=== PATIENT | male | born 1950 | race Caucasian/White ===

== ENCOUNTER 2018-12-02 16:09 | Emergency (ER) | payer MEDICARE, OTHER ==
[~2018-12-02] VITALS: Ht 162.6 cm; Wt 72.6 kg
[~2018-12-02 16:09] MED LIST: AMLO10TA7 PO; ASPI-605 PO; BENA20TA9 PO; FINA5TAB11 PO
[2018-12-02] MEDS ORDERED: TAMS-3 PO (16:20)
[2018-12-02] MEDS ORDERED: DIPH50CA37 PO (16:20)
[2018-12-02] MEDS ORDERED: LOSA100T31 PO (16:20)
[2018-12-02] MEDS ORDERED: METO25TA3 PO (16:20)
[2018-12-02] MEDS ORDERED: CLON0.1T PO (16:20)
[2018-12-02] MEDS ORDERED: AMLO10TA7 PO (16:20)
[2018-12-02] MEDS ORDERED: ENALAPRILAT DIHYDRATE 1.25 MG/1 ML VIAL IV ONE ×2 (16:30→16:32)
[2018-12-02 17:12] LABS: BASOPHILS % (AUTO) 0.4 % (0.0-2.0); EOSINOPHILS # (AUTO) 0.1 K/uL (0.0-0.7); EOSINOPHILS % (AUTO) 1.4 % (0.0-7.0); HEMATOCRIT 38.5 % (36.7-47.1); LYMPHOCYTES # (AUTO) 1.4 K/uL (20.0-40.0); LYMPHOCYTES % (AUTO) 28.3 % (20.5-51.5); MEAN CORPUSCULAR HEMOGLOBIN 30.9 uug (23.8-33.4); MEAN CORPUSCULAR HGB CONC 34 g/dL (32.5-36.3); MEAN CORPUSCULAR VOLUME 91.3 fL (73.0-96.2); MONOCYTES # (AUTO) 0.4 K/uL (2.0-10.0); NEUTROPHILS # (AUTO) 3.1 K/uL (1.8-8.9); NEUTROPHILS % (AUTO) 61.9 % (38.5-71.5); PLATELET COUNT (AUTO) 176 K/uL (152-348); RED BLOOD CELL COUNT(AUTO) 4.21 MIL/uL (4.06-5.63)
[2018-12-02 17:16] LABS: CREATININE 0.9 mg/dL (0.6-1.3); POTASSIUM 3.5 mmol/L (3.5-5.1)
--- NOTE | 2018-12-02 17:40 | NUR ---
Patient discharged to home in stable conditon. Written and verbal after care instructions given. Patient verbalizes understanding of instructions. Ambulated from ER with stable gait. All belongings with patient . Peripheral IV removed prior to d/c
[2018-12-02 17:42] VITALS: BP 161/97
== END 2018-12-02 17:42 | disposition home or self-care (01) ==
LOC: ER 16:12
DX: I10 Essential (primary) hypertension (principal); F17.210 Nicotine dependence, cigarettes, uncomplicated; Z79.82 Long term (current) use of aspirin; Z79.899 Other long term (current) drug therapy
CPT/HCPCS: 36415; 71045; 80048; 84484; 85025; 93005; 96374; 99284; 99406; J3490; 70030-TC; A4663

== ENCOUNTER 2019-01-06 11:23 | Emergency (ER) | payer MEDICARE, OTHER ==
[~2019-01-06] VITALS: Ht 170.2 cm; Wt 68.0 kg
[~2019-01-06 11:23] MED LIST changes: -ASPI-605 PO; -BENA20TA9 PO; +CLON0.1T PO; +DIPH50CA37 PO; -FINA5TAB11 PO; +LOSA100T31 PO; +METO25TA3 PO; +TAMS-3 PO
[2019-01-06] MEDS ORDERED: CLONIDINE HCL 0.2 MG TABLET PO ONE (11:45)
[2019-01-06] MEDS ORDERED: CLONIDINE HCL 0.2 MG TABLET ONE (11:49)
[2019-01-06 12:51] VITALS: BP 143/88
--- NOTE | 2019-01-06 12:56 | NUR ---
Patient discharged to home in stable conditon. Written and verbal after care instructions given. Patient verbalizes understanding of instructions.PT WALKS IN STEADY GAIT. PT ACCOMPANIED BY FAMILY MEMBERS.
== END 2019-01-06 12:57 | disposition home or self-care (01) ==
LOC: ER 11:23
DX: S22.42XA Multiple fractures of ribs, left side, initial encounter for closed fracture (principal); I10 Essential (primary) hypertension; F17.210 Nicotine dependence, cigarettes, uncomplicated; Z79.899 Other long term (current) drug therapy; W19.XXXA Unspecified fall, initial encounter; Y93.89 Activity, other specified; Y92.89 Other specified places as the place of occurrence of the external cause; Y99.8 Other external cause status
CPT/HCPCS: 71101; A4663

== ENCOUNTER 2021-01-17 06:32 | Outpatient (CLI) | payer MEDICARE, OTHER ==
[~2021-01-17 06:32] MED LIST changes: +AMLO10TA59 PO; -AMLO10TA7 PO
== END 2021-01-17 23:59 | disposition home or self-care (01) ==
LOC: LAB 06:32
PROVIDERS: ATTEND Internal Medicine
DX: Z01.812 Encounter for preprocedural laboratory examination (principal); Z20.822 Contact with and (suspected) exposure to COVID-19

== ENCOUNTER 2021-01-20 07:29 | Day surgery (SDC) | payer MEDICARE, OTHER ==
[2021-01-20] MEDS ORDERED: LIDOCAINE-MPF 2% 5 ML VIAL IJ ONE (07:30)
[2021-01-20] MEDS ORDERED: NEOSTIGMINE METHYLSULFATE 10 MG/10 ML VIAL IM ONE (07:30)
[2021-01-20] MEDS ORDERED: METOCLOPRAMIDE HCL 10 MG/2 ML VIAL IV ONE (07:30)
[2021-01-20] MEDS ORDERED: IV NORMAL SALINE 1000 ML BAG IV ONE (07:30)
[2021-01-20] MEDS ORDERED: PROPOFOL 200 MG/20 ML BOTTLE IV ONE (07:30)
[2021-01-20] MEDS ORDERED: SEVOFLURANE 250 ML BOTTLE IH ONE (07:30)
[2021-01-20] MEDS ORDERED: ONDANSETRON 4 MG/2 ML VIAL IV ONE (07:30)
[2021-01-20] MEDS ORDERED: GLYCOPYRROLATE 0.2 MG/ML VIAL IJ ONE (07:30)
[2021-01-20] MEDS ORDERED: CEFAZOLIN 1 G VIAL IM ONE (07:30)
[2021-01-20] MEDS ORDERED: CEFAZOLIN 2 G in IV DEXTROSE 5% 100 ML IV ONE (07:45)
[2021-01-20 07:56] LABS: *BILIRUBIN,URIN 3+ (NEGATIVE); *BLOOD, URINE 1+ (NEGATIVE); *CLARITY,URINE CLEAR (CLEAR); *COLOR,URINE YELLOW (YELLOW); *KETONES,URINE 2+ (NEGATIVE); LEUKOCYTE ESTERASE ,URINE NEGATIVE (NEGATIVE); NITRITE, URINE NEGATIVE (NEGATIVE); PH,URINE 5.5 (5.0-8.0); UGLUCOSE NEGATIVE (NEGATIVE)
[2021-01-20 08:12] LABS: HEMATOCRIT 39.8 % (36.7-47.1); MEAN CORPUSCULAR HEMOGLOBIN 35.1 uug (23.8-33.4); MEAN CORPUSCULAR VOLUME 104.1 fL (73.0-96.2); PLATELET COUNT (AUTO) 173 K/uL (152-348)
[2021-01-20 08:27] LABS: CREATININE 1.2 mg/dL (0.6-1.3)
[2021-01-20 08:32] LABS: BILIRUBIN,TOTAL 0.8 mg/dL (0.2-1.0); TOTAL PROTEIN, SERUM 6.7 g/dL (6.4-8.2)
[2021-01-20] MEDS ORDERED: BUPIVACAINE PF 0.5% 30 ML VIAL ONE (08:36)
[2021-01-20] MEDS ORDERED: LIDOCAINE 1%-EPI 1:100,000 20 ML VIAL ONE (08:36)
[2021-01-20] MEDS ORDERED: BACITRACIN ZINC OINT 15 GM TUBE ONE (08:37)
[2021-01-20] MEDS ORDERED: MIDAZOLAM HCL 2 MG/2 ML VIAL ONE (08:40)
[2021-01-20] MEDS ORDERED: HYDROMORPHONE 2 MG/1 ML DISP.SYRIN ONE (08:40)
[2021-01-20] MEDS ORDERED: FENTANYL CITRATE 250 MCG/5 ML AMPUL ONE (08:40)
[2021-01-20] MEDS ORDERED: ROCURONIUM BROMIDE 50 MG/5 ML VIAL ONE (08:41)
[2021-01-20] MEDS ORDERED: SEVOFLURANE 250 ML BOTTLE ONE (09:55)
[2021-01-20 10:55] LABS: BACTERIA,URINE NONE SEEN /HPF (NONE SEEN); MUCUS,URINE FEW /LPF (0-FEW); SQUAMOUS EPITHELIAL CELL,UR NONE SEEN /HPF (NONE SEEN); WBC,URINE 0-3 /HPF (0-3)
[2021-01-20] MEDS ORDERED: ACETAMINOPHEN 325 MG TABLET ONE (11:57)
[2021-01-20] MEDS ORDERED: GABAPENTIN 300 MG CAPSULE PO ONE (12:00)
[2021-01-20] MEDS ORDERED: ACETAMINOPHEN 325 MG TABLET PO ONE (12:00)
[2021-01-20] MEDS ORDERED: IBUPROFEN 800 MG TABLET PO ONE (12:00)
== END 2021-01-20 13:00 | disposition home or self-care (01) ==
LOC: DS 07:29
PROVIDERS: ATTEND Surgery
DX: K40.30 Unilateral inguinal hernia, with obstruction, without gangrene, not specified as recurrent (principal); I10 Essential (primary) hypertension; N40.1 Benign prostatic hyperplasia with lower urinary tract symptoms; F17.210 Nicotine dependence, cigarettes, uncomplicated; Z79.899 Other long term (current) drug therapy; Z98.890 Other specified postprocedural states
CPT/HCPCS: 36415; 85025; 85610; 85730; 93005; A4649; A4663; J0690; J1170; J2250; J2405; J2765; J3010; J3490; J7030; J7060; J7120

== ENCOUNTER 2023-05-27 12:26 | Inpatient (IN) | payer MEDICARE, OTHER ==
[~2023-05-27] VITALS: Ht 162.6 cm; Wt 71.2 kg
[~2023-05-27 12:26] MED LIST changes: +HYDR-4209 PO
[2023-05-27] MEDS ORDERED: OLME1TAB32 PO (14:34)
[2023-05-27 14:43] LABS: BASOPHILS % (AUTO) 0.2 % (0.0-2.0); EOSINOPHILS % (AUTO) 0.3 % (0.0-7.0); HEMATOCRIT 45.6 % (36.7-47.1); HEMOGLOBIN 14.9 g/dL (12.5-16.3); LYMPHOCYTES # (AUTO) 1.3 K/uL (0.8-4.8); LYMPHOCYTES % (AUTO) 9.4 % (20.5-51.5); MEAN CORPUSCULAR HEMOGLOBIN 27.6 uug (23.8-33.4); MEAN CORPUSCULAR HGB CONC 33 g/dL (32.5-36.3); MEAN CORPUSCULAR VOLUME 84.8 fL (73.0-96.2); MONOCYTES # (AUTO) 0.8 K/uL (0.1-1.30); MONOCYTES % (AUTO) 5.5 % (0.0-11.0); NEUTROPHILS # (AUTO) 11.8 K/uL (1.8-8.9); NEUTROPHILS % (AUTO) 84.6 % (38.5-71.5); PLATELET COUNT (AUTO) 246 K/uL (152-348); RED BLOOD CELL COUNT(AUTO) 5.38 MIL/uL (4.06-5.63); RED CELL DISTRIBUTION WIDTH 14.6 % (12.1-16.2); WHITE BLOOD COUNT (AUTO) 13.9 K/uL (3.6-10.2)
[2023-05-27 14:46] LABS: DIFFERENTIAL COMMENT 1
[2023-05-27 15:09] LABS: ALANINE AMINOTRANSFERASE 11 U/L (16-63); ALBUMIN 3.7 g/dL (3.4-5.0); ALKALINE PHOSPHATASE 68 U/L (50-136); ASPARTATE AMINOTRANSFERASE < 5 U/L (15-37); BILIRUBIN,DIRECT 0.2 mg/dL (0.0-0.2); BILIRUBIN,TOTAL 0.5 mg/dL (0.2-1.0); CARBON DIOXIDE 24 mmol/L (21-32); CHLORIDE 100 mmol/L (98-107); CREATININE 0.9 mg/dL (0.6-1.3); GLUCOSE 98 mg/dL (74-106); LIPASE 24 U/L (16-77); POTASSIUM 3.9 mmol/L (3.5-5.1); SODIUM SERUM 136 mmol/L (136-145); TOTAL PROTEIN, SERUM 8.5 g/dL (6.4-8.2); UREA NITROGEN, BLOOD 18 mg/dL (7-18)
[2023-05-27] MEDS ORDERED: ONDANSETRON 4 MG/2 ML VIAL ONE (15:42)
[2023-05-27] MEDS ORDERED: MORPHINE SULFATE 4 MG/1 ML DISP.SYRIN ONE (15:43)
[2023-05-27] MEDS ORDERED: MORPHINE SULFATE 4 MG/1 ML DISP.SYRIN IV ONE (15:45)
[2023-05-27] MEDS ORDERED: ONDANSETRON 4 MG/2 ML VIAL IV ONE (15:45)
[2023-05-27] MEDS ORDERED: CEFAZOLIN 1 G VIAL ONE ×2 (17:45)
[2023-05-27] MEDS ORDERED: DEXAMETHASONE SOD PHOSPHATE 4 MG INJ ONE ×2 (17:45)
[2023-05-27] MEDS ORDERED: PROPOFOL 200 MG/20 ML BOTTLE ONE (17:45)
[2023-05-27] MEDS ORDERED: GLYCOPYRROLATE 0.2 MG/ML VIAL ONE (17:45)
[2023-05-27] MEDS ORDERED: LIDOCAINE-MPF 2% 5 ML VIAL ONE (17:45)
[2023-05-27] MEDS ORDERED: METOCLOPRAMIDE HCL 10 MG/2 ML VIAL ONE (17:45)
[2023-05-27] MEDS ORDERED: FENTANYL CITRATE 100 MCG/2 ML AMPUL ONE (17:47)
[2023-05-27] MEDS ORDERED: IV LACTATED RINGERS SOLUTION 1,000 ML IV PRN (19:00)
[2023-05-27] MEDS: ACETAMINOPHEN 325 MG TABLET PO SCH (21:03)
[2023-05-27] MEDS: CELECOXIB 200 MG CAPSULE PO SCH (21:03)
[2023-05-27] MEDS: PIPERACILLIN SODIUM/TAZOBACTAM 3.375 G in IV DEXTROSE 5% 100 ML IV SCH (21:03)
[2023-05-27 22:34] VITALS: BP 133/78; TEMP 98.9; O2SAT 91
[2023-05-28] MEDS: ACETAMINOPHEN 325 MG TABLET PO SCH (05:12)
[2023-05-28] MEDS: GABAPENTIN 100 MG CAPSULE PO SCH ×2 (05:12→13:11)
[2023-05-28] MEDS: PIPERACILLIN SODIUM/TAZOBACTAM 3.375 G in IV DEXTROSE 5% 100 ML IV SCH ×2 (05:12→13:11)
[2023-05-28 05:58] VITALS: BP 101/64; TEMP 97.6; O2SAT 96
[2023-05-28] MEDS: CELECOXIB 200 MG CAPSULE PO SCH (09:32)
[2023-05-28 11:20] VITALS: BP 105/66; TEMP 98.2; O2SAT 95
[2023-05-28] MEDS ORDERED: ASPI81TA31 PO (11:28)
[2023-05-28] MEDS ORDERED: IBUP-1957 PO (11:28)
[2023-05-28] MEDS ORDERED: GABA300C PO (11:28)
[2023-05-28] MEDS ORDERED: OLME1TAB34 PO (11:28)
[2023-05-28] MEDS ORDERED: FINA5TAB11 PO (11:28)
[2023-05-28] MEDS ORDERED: ACETAMINOPHEN 325 MG TABLET PO PRN (11:45)
[2023-05-28] MEDS ORDERED: ASPIRIN 81 MG TAB.CHEW PO SCH (11:45)
[2023-05-28] MEDS ORDERED: GABAPENTIN 300 MG CAPSULE PO SCH (11:45)
[2023-05-28] MEDS ORDERED: FINASTERIDE 5 MG TABLET PO SCH (11:45)
[2023-05-28 15:06] VITALS: BP 115/66; TEMP 98.2; O2SAT 97
[2023-05-28] MEDS ORDERED: TAMSULOSIN HCL 0.4 MG CAP.SR.24H PO SCH (21:00)
== END 2023-05-28 18:00 | disposition home or self-care (01) | DRG 863 ==
LOC: ER 12:26 → MEDSURG3 18:29
PROVIDERS: ADMIT Internal Medicine; ATTEND Internal Medicine
PROC: 0J983ZZ Drainage of Abdomen Subcutaneous Tissue and Fascia, Percutaneous Approach (ICD-10-PCS; principal; 2023-05-27)
PROC: 0JD83ZZ Extraction of Abdomen Subcutaneous Tissue and Fascia, Percutaneous Approach (ICD-10-PCS; 2023-05-27)
DX: T81.42XA Infection following a procedure, deep incisional surgical site, initial encounter (principal); L02.211 Cutaneous abscess of abdominal wall; E78.5 Hyperlipidemia, unspecified; N40.0 Benign prostatic hyperplasia without lower urinary tract symptoms; E66.9 Obesity, unspecified; Z68.26 Body mass index [BMI] 26.0-26.9, adult; G89.29 Other chronic pain; M54.50 Low back pain, unspecified; Z87.11 Personal history of peptic ulcer disease; I25.10 Atherosclerotic heart disease of native coronary artery without angina pectoris; I11.9 Hypertensive heart disease without heart failure; D72.829 Elevated white blood cell count, unspecified; F17.210 Nicotine dependence, cigarettes, uncomplicated; M15.9 Polyosteoarthritis, unspecified; Z85.51 Personal history of malignant neoplasm of bladder; Z90.3 Acquired absence of stomach [part of]; Z90.49 Acquired absence of other specified parts of digestive tract; Z86.73 Personal history of transient ischemic attack (TIA), and cerebral infarction without residual deficits; Z79.82 Long term (current) use of aspirin; Z79.899 Other long term (current) drug therapy
CPT/HCPCS: 36415; 71045; 83690; 84484; 85025; 85730; 86850; 86900; 86901; 93005; A4606; A4649; A4663; G0378; J0690; J1100; J2270; J2405; J2543; J2765; J3010; J3490; J7120